=== PATIENT | male | born 1995 | race Caucasian/White ===

== ENCOUNTER 2016-07-17 14:17 | Emergency (ER) | payer OTHER, BC ==
--- NOTE | 2016-07-17 15:05 | RAD ---
FEMUR LEFT COMPARISON: None. HISTORY: Patient fell down stairs today and has left hip and femur pain. Views: Left femur AP and lateral FINDINGS: Bones: No fracture bone instruction. Joints: Mild osteophytes at the left femoral neck. Soft tissues: Normal. IMPRESSION: Mild osteoarthritis of the left hip. No acute finding.
== END 2016-07-17 16:27 | disposition home or self-care (01) ==
LOC: ED 14:17
DX: S70.12XA Contusion of left thigh, initial encounter (principal); W00.1XXA Fall from stairs and steps due to ice and snow, initial encounter; Y92.9 Unspecified place or not applicable